=== PATIENT | female | born 1960 | race Caucasian/White ===

== ENCOUNTER 2019-03-04 10:49 | Emergency (ER) | payer BC ==
[~2019-03-04] VITALS: Ht 162.6 cm; Wt 76.7 kg
[2019-03-04] MEDS ORDERED: SERTRALINE HCL100 MG PO (11:20)
[2019-03-04] MEDS ORDERED: LEVOTHYROXINE75 MCG PO (11:20)
[2019-03-04] MEDS ORDERED: LAMOTRIGINE100 MG PO (11:21)
[2019-03-04] MEDS ORDERED: ROPINIROLE HCL1 MG PO (11:21)
[2019-03-04] MEDS ORDERED: MONTELUKAST SOD10 MG PO (11:21)
[2019-03-04] MEDS ORDERED: PRILOSEC OTC20 MG PO (11:22)
[2019-03-04] MEDS ORDERED: QUETIAPINE FUM300 MG PO (11:22)
[2019-03-04] MEDS ORDERED: VENTOLIN HFA18 GM INH (11:23)
[2019-03-04] MEDS ORDERED: NYSTATIN100000 UN1 PO (11:35)
== END 2019-03-04 11:54 | disposition home or self-care (01) ==
LOC: ED 10:49
DX: B37.0 Candidal stomatitis (principal); T37.8X5A Adverse effect of other specified systemic anti-infectives and antiparasitics, initial encounter; F17.200 Nicotine dependence, unspecified, uncomplicated; Z88.5 Allergy status to narcotic agent; Z88.6 Allergy status to analgesic agent
CPT/HCPCS: 99283

== ENCOUNTER 2019-07-31 23:32 | Observation (INO) | payer BC ==
[~2019-07-31] VITALS: Ht 162.6 cm; Wt 80.2 kg
[~2019-07-31 23:32] MED LIST: LAMOTRIGINE100 MG PO; LEVOTHYROXINE75 MCG PO; MONTELUKAST SOD10 MG PO; NYSTATIN100000 UN1 PO; PRILOSEC OTC20 MG PO; QUETIAPINE FUM300 MG PO; ROPINIROLE HCL1 MG PO; SERTRALINE HCL100 MG PO; VENTOLIN HFA18 GM INH
[2019-08-01] MEDS ORDERED: PREDNISONE20 MG PO (02:22)
[2019-08-01] MEDS ORDERED: ALBUTEROL2.5 MG/3 M INH (02:22)
--- NOTE | 2019-08-01 03:25 | NUR ---
PT ARRIVED TO FLOOR VIA STRETCHER. PT ABLE TO STAND AND WALK TO THE BATHROOM WITH SBA. PT TOLERATED WELL. SOB WITH EXERTION. ADMISSION PROCESS COMPLETE. PT PROVIDED WITH SANDWHICH BOX, WATER, AND SODA. PRIMARY RN AT BEDSIDE. PT DENIES FURTHER NEEDS FROM THIS FIREWORKS MAKER. CALL LIGHT IN REACH.
--- NOTE | 2019-08-01 04:00 | NUR ---
PT ORIENTED TO ROOM AND NURSE CALL LIGHT BUTTON. ASSESSMENT COMPLETE. IVF INFUSING. TELE #6, NORMAL SINUS TACH. TEMP UPON ARRIVAL WAS NOTED TO BE 102.6. EXTRA BLANKETS REMOVED. TEMP 100.5 AT THIS TIME. CPOX IN PLACE. OXYGEN 2L/NC IN PLACE. FAN GIVEN PT C/O BEING HOT. PT DENIES FURTHER QUESTIONS. CALL LIGHT IN REACH.
--- NOTE | 2019-08-01 05:30 | NUR ---
IV STARTED IN RIGHT HAND BY SALES REPRESENTATIVE WIRE ROPE PER PT REQUEST DUE TO LEFT HAND IV BEING POSITIONAL AND ALARMING FREQUENTLY. PT LEEANN WELL. TEMP CURRENTLY 99.7. PT WITH FAN AND SHEET ONLY. CPOX AND O2 2L/NC IN PLACE.
--- NOTE | 2019-08-01 07:27 | NUR ---
0708: Report recieved from Aissatou GUZMAN. Pt resting in her bed and she denies any complaints at this time. Sat in the 90's on 2l and tele shows SR at 69. Call chamorro within reach.
--- NOTE | 2019-08-01 07:56 | NUR ---
PT AWAKES TO VOICE AND ANSWERS QUESTIONS AND FALLS RIGHT BACK TO SLEEP. SAT WAS 97% ON 2L WHILE SLEEPING. O2 DECREASED TO 1L AND SHE REMAINS ON CPOX, SAT NOW IS 94%. WILL CONTINUE TO MONITOR. IV CONTINUES RUNNING LR AT 125. CALL JORDAN WITHIN REACH.
--- NOTE | 2019-08-01 09:28 | NUR ---
PATIENT UP TO SHOWER, SBA. PATIENT IND. IN SHOWER. NEW GOWN PROVIDED. LINENS CHANGED. PATIENT NOW BACK TO BED, CALL LIGHT IN REACH. NO FURTHER NEEDS AT THIS TIME.
--- NOTE | 2019-08-01 09:45 | NUR ---
Pt states her breathing feels a little heavy, rt called. Sat 90% on 1l, lung sounds decreased in the bases and exp wheezes throughout. She denies any cp, just sob.
--- NOTE | 2019-08-01 11:03 | NUR ---
sat now 91% on room air. She denies any sob at this time. Pt remains on cpox.
--- NOTE | 2019-08-01 13:29 | NUR ---
Pt resting in her bed coloring in a book. She states she is feeling better and her breathing is improving. Sat on room air is 87-89% and she states she did get dizzy when she walked to the bathroom. 02 replaced at 1l and sat increased to 89-92%. She was instructed to call before getting up which staff was present when she did get up prior. She denies feeling dizzy at this time, hr 88, bp 107/49.
--- NOTE | 2019-08-01 14:05 | NUR ---
MED REC COMPLETED WITH PHARMACY FILL HISTORY AND PATIENT INTERVIEW.
--- NOTE | 2019-08-01 14:33 | NUR ---
Pt denies any new problems and she states she feels that she is improving. Sat on 1l is 90%.
--- NOTE | 2019-08-01 18:04 | EKG ---
[facility] [address] [facility] [place], [place] [address] Signed Normal sinus rhythm Normal ECG No previous ECGs available Confirmed by RYAN HALL DO ([id number]) on 08/01/2019 6:04:06 PM Electronically Signed By: RYAN HALL DO 08/01/19 1804 PATIENT NAME: KRISTEN MIRAMONTES Electrocardiogram DATE OF : 56 PHYSICIAN: RYAN HALL DO REPORT #: [id number] REPORT IS CONFIDENTIAL AND NOT TO BE RELEASED WITHOUT AUTHORIZATION
--- NOTE | 2019-08-01 18:17 | NUR ---
Sat 93% on 1l at this time. Pt states her breathing is feeling "better". She has no complaints at this time.
--- NOTE | 2019-08-01 19:40 | NUR ---
REPORT RECEIVED FROM DAY SHIFT RN. PT SITTING UP IN BED, ALERT AND ORIENTED. O2 1L/NC, SATS 93%. PT DENIES NEEDS AT THIS TIME. CALL LIGHT IN REACH.
--- NOTE | 2019-08-01 20:30 | NUR ---
PT AWAKE AND ALERT, COLORING, WITHOUT COMPLAINTS, VS DONE.
--- NOTE | 2019-08-01 20:55 | NUR ---
ASSESSMENT COMPLETE. SCHEDULED MEDS GIVEN WITHOUT ISSUE. PT TALKATIVE, COLORING IN A BOOK. CPOX IN PLACE. 02 1L/NC, SATS 93%. DENIES PAIN OR SOB. DENIES OTHER NEEDS. CALL LIGHT IN REACH.
--- NOTE | 2019-08-01 21:30 | NUR ---
PT C/O CONSTIPATION. PRN GIVEN.
--- NOTE | 2019-08-01 22:41 | NUR ---
CALL LIGHT ANSWERED. SBA TO THE BATHROOM AND BACK TO BED. NO OTHER NEEDS AT THIS TIME.
--- NOTE | 2019-08-02 00:31 | NUR ---
CALL LIGHT ANSWERED. PT UP TO BR TO WITH SBA. PT SLIGHTLY UNSTEADY, STATES IT'S LIKELY FROM BEING SLEEPY FROM THE SEROQUEL. INCREASED SOB WITH AMBULATION. O2 1L/NC IN PLACE. PT DENIES OTHER NEEDS.
--- NOTE | 2019-08-02 03:15 | NUR ---
PT RESTING IN BED WITH EYES CLOSED. RESPIRATIONS EVEN AND UNLABORED. O2 SATS 96% ON 1L/NC. HR 65. CALL LIGHT IN REACH.
--- NOTE | 2019-08-02 05:00 | NUR ---
PT OXYGEN SATS 96% ON 1L/NC. OXYGEN TITRATED TO OFF. CPOX REMAINS IN PLACE.
--- NOTE | 2019-08-02 05:30 | NUR ---
OXYGEN SATURATIONS REMAIN 92-95% ON RA. HR 72. RR EVEN AND UNLABORED.
--- NOTE | 2019-08-02 06:20 | NUR ---
PT SLEPT WELL. ALERT AND ORIENTED. CALLS APPROPRIATELY. SBA. OXYGEN WEANED TO RA THIS AM, SATS REMAIN 92-95% ON RA. PO ABX. BREATHING TX.
--- NOTE | 2019-08-02 06:39 | NUR ---
SCHEDULED MEDS GIVEN WITHOUT ISSUE. PT UP TO BR WITH SBA. BACK TO BED. CPOX READS 89%, INCREASED SOB NOTED. SATS AT 92% AFTER RESTING IN BED.
--- NOTE | 2019-08-02 07:58 | NUR ---
PT UP IN BED EATING BREAKFAST. SATS DIP TO 88% ON ROOM AIR PT TAKES DEEP BREATHS RECOVERS TO 92% QUICKLY.
--- NOTE | 2019-08-02 08:08 | NUR ---
PATIENT SITTING UP IN BED TAKING HER BREAKFAST. SETS UP BATHROOM FOR SHOWER. PATIENT IS GOING TO TAKE A SHOWER THIS MORNING. CALL LIGHT WITHIN REACH. NO OTHER NEEDS AT THIS TIME
[2019-08-02] MEDS ORDERED: PREDNISONE20 MG PO (09:07)
[2019-08-02] MEDS ORDERED: AZITHROMYCIN250 MG PO (09:11)
[2019-08-02] MEDS ORDERED: ALBUTEROL2.5 MG/3 M INH (09:12)
[2019-08-02] MEDS ORDERED: IPRAT-ALBUT 0.5-3 ML INH (09:12)
--- NOTE | 2019-08-02 09:13 | NUR ---
PATIENT RESTING IN BED. RN AND COUSIN IN ROOM. VITAL SIGNS AND I&O DONE. CALL LIGHT WITHIN REACH. NO OTHER NEEDS AT THIS TIME
--- NOTE | 2019-08-02 09:42 | NUR ---
DR HALL IN TO SEE PT DC INSTRUCTIONS DISCUSSED QUESTIONS ANSWERED. PT TO THE SHOWER SOB SHE RETURNS RECOVERS QUICKLY WITH REST. COUSIN IS IN WITH HER AT THIS TIME
--- NOTE | 2019-08-02 09:45 | NUR ---
SPOKE WITH PATIENT AND COUSIN IN ROOM. PATIENT IS HERE VISITING FAMILY. PATIENT DENIES USING ANY AMBULATION DEVICES. SHE HAS NEBULIZER AT HOME, ALSO OXYGEN SET UP SHE USES NEEDED. SHE STATES SHE SPOKE WITH DR HALL THIS MORNING AND IS BEING DISCHARGED. SHE STATES HE IS GIVING HER SOME DOSES OF HER NEBULIZER MEDICATION AT DISCHARGE TO TAKE HOME TO COUSINS. COUSIN STATES SHE HAS A NEBULIZER AT HER HOUSE. PATIENT IS PLANNING ON RETURNING HOME TOMORROW. SHE STATES UNDERSTANDING THAT SHE SHOULD F/U WITH HER PCP IN [place]. NO FURTHER QUESTIONS OR CONCERNS AT THIS TIME.
== END 2019-08-02 10:26 | disposition home or self-care (01) ==
LOC: ED 23:32 → MS 23:33
PROVIDERS: ADMIT Student in an Organized Health Care Education/Training Program
DX: J44.1 Chronic obstructive pulmonary disease with (acute) exacerbation (principal); D69.6 Thrombocytopenia, unspecified; K21.9 Gastro-esophageal reflux disease without esophagitis; E03.9 Hypothyroidism, unspecified; G25.81 Restless legs syndrome; F17.210 Nicotine dependence, cigarettes, uncomplicated; F39 Unspecified mood [affective] disorder; Z88.5 Allergy status to narcotic agent; Z88.6 Allergy status to analgesic agent; Z88.8 Allergy status to other drugs, medicaments and biological substances; Z79.52 Long term (current) use of systemic steroids; Z79.899 Other long term (current) drug therapy
CPT/HCPCS: 71045; 80053; 83735; 84484; 85025; 90688; 93005; 93010; 94640; 94645; 94762; 96374; 96376; 99285-25; 99406; G0008; G0378; J2930; J7512

== ENCOUNTER 2019-08-03 08:10 | Inpatient (IN) | payer BC ==
[~2019-08-03] VITALS: Ht 162.6 cm; Wt 79.8 kg
[~2019-08-03 08:10] MED LIST changes: +ALBUTEROL2.5 MG/3 M INH; +AZITHROMYCIN250 MG PO; +IPRAT-ALBUT 0.5-3 ML INH; +PREDNISONE20 MG PO
--- OUTSIDE RECORDS SUMMARY | 2019-08-03 08:14 | XMS ---
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 - 2 Visits in 30 Days CARE PROVIDERS [facility] Mental Health Provider 12/02/2006-Current for Living PHONE: [phone] BANDAR LARSEN Primary Care Current PHONE: Unknown Jessa has no Care Guidelines for this patient. Dc VISIT COUNT (12 MO.) [address] [place] [address] TOTAL 3 NOTE: Visits indicate total known visits. ED/UCC VISIT TRACKING (12 MO.) 08/03/2019 08:11 [facility] TYPE: Emergency COMPLAINT: - SOB 07/31/2019 23:32 [facility] TYPE: Emergency COMPLAINT: - SOB 03/04/2019 10:50 [facility] TYPE: Emergency COMPLAINT: - MEDICATION REACTION, TONGUE/LIP SWELLING DIAGNOSES: - Allergy status to analgesic agent status - Nicotine dependence, unspecified, uncomplicated - Adverse effect of systemic anti-infect/parasit, init - Localized swelling, mass and lump, head - Allergy status to narcotic agent status - Candidal stomatitis INPATIENT VISIT TRACKING (12 MO.) 07/31/2019 23:33 PR[facility]LL[facility]quez OR TYPE: Observation COMPLAINT: - COPD EXACERBATION [email or web address]
--- NOTE | 2019-08-03 12:20 | NUR ---
58 YR OLD FEMALE PATIENT ADMITTED TO CCU FROM ED VIA STRETCHER UNDER DR. HALL WITH DX OF EXCERBATION COPD. PATIENT WAS DISCHARGED FROM THIS HOSPITAL 2 DAYS AGO. USES HOME O2 BUT HAS BEEN VISITING FROM [facility] TO BRING O2. UPON ADMIT PATINT IS ON BIPAP, FIO2 40, I-15, E-8.. IS ABLE TO ANSWER QUESTIONS. STATES SHE IS FEELING BETTER. HAS OCC NON PRODUCTIVE COUGH. ADMISSION PROCESS STARTED
--- NOTE | 2019-08-03 13:30 | NUR ---
AWAKE, UP TO COMMODE WITH ASSIST TO VOID QS AMOUNT OF TERESSA URINE. BIPAP REMAISN ON WITH TRANSFER TO COMMMODE. UPON RETURN TO BED IS WITH INCREASE SHORTNESS OF BREATH. HOB ELEVATED. RESP RATE-30.
--- NOTE | 2019-08-03 14:21 | NUR ---
MED REC COMPLETE
--- NOTE | 2019-08-03 14:22 | EKG ---
[facility] [address] [facility] [place], [place] [address] Signed Sinus tachycardia Otherwise normal ECG No previous ECGs available Confirmed by RYAN HALL DO ([id number]) on 08/03/2019 2:22:07 PM Electronically Signed By: RYAN HALL DO 08/03/19 1422 PATIENT NAME: KRISTEN MIRAMONTES Electrocardiogram DATE OF : 56 PHYSICIAN: RYAN HALL DO REPORT #: [id number] REPORT IS CONFIDENTIAL AND NOT TO BE RELEASED WITHOUT AUTHORIZATION
--- NOTE | 2019-08-03 14:59 | NUR ---
IN ROOM TO CHECK ON PT. PT SLEEPING WITH BIPAP IN PLACE. NO DISTRESS NOTED. BP RECYCLED, BUT REMAINS LOW. WILL CONTINUE TO MONITOR.
--- NOTE | 2019-08-03 15:00 | NUR ---
IVF LR BOLUS OF 1 LITER PER ORDERS INFUSING.
--- NOTE | 2019-08-03 16:00 | NUR ---
MODIFIED ASSESSMENT DONE PATIENT IS SLEEPING.
--- NOTE | 2019-08-03 16:56 | NUR ---
sleeping on bipap. NO DISTRESS NOTED.
--- NOTE | 2019-08-03 17:09 | NUR ---
In for case management assessment. Pt is sleeping with bipap in place. Not awakened.
--- NOTE | 2019-08-03 17:40 | NUR ---
TO CT VIA BED, RESP THERAPY HERE TO MANAGE BIPAP. RT, BUS AIDE, RN WITH PATIENT.
--- NOTE | 2019-08-03 17:55 | NUR ---
RETURN TO CCU, TOLERATED CT WELL. PATIENT IS ASKING FOR FOOD. TALKED WITH PATIENT ABOUT THIS. IS UNDERSTANDING. HOB ELEVATED.
--- NOTE | 2019-08-03 20:00 | NUR ---
PT AT THIS TIME IS SLEEPING. V/S ARE WDL.
--- NOTE | 2019-08-03 21:00 | NUR ---
PT AT THIS TIME IS CALM AND AAOX4. PT IS EATING A SNACK. PT HAS LESS SOB PRESENT AT THIS TIME AND WAS ABLE TO MOVE TO BSC AND VOID WITHOUT BECOMING SHORT OF BREATH TO THE POINT OF PANIC. ALL LOBES ARE COARSE AT THIS TIME. ABD SOUNDS ARE PRESENT, PT HAS +1 BILATERAL LOWER LEG EDEMA PRESENT, RADIAL AND PEDIS PULSES +2. V/S OVERALL WDL. PT IS TOLERATING OXY MASK ON 5L WHILE EATING WELL. WILL CONTINUE TO MONITOR.
--- NOTE | 2019-08-03 22:00 | NUR ---
PT IS SLEEPING WITH BI-PAP ON. NO NEW CONCERNS NOTED AT THIS TIME.
--- NOTE | 2019-08-04 00:05 | NUR ---
PT STILL ON BI-PAP FIO2 35%. PT IS TOLERATING WELL. PT ALSO TOLERATES OXY MASK 5L O2 WELL WHILE ON BSC. PT DENIES PAIN AND ONLY HAS MINOR SOB. ALL LOBES HAVE EXP. WHEEZING PRESENT. NO NEW CONCERNS WERE NOTED.
--- NOTE | 2019-08-04 02:00 | NUR ---
PT IS SLEEPING WITH BI-PAP ON AT THIS TIME. NO NEW CONCERNS NOTED.
--- NOTE | 2019-08-04 04:00 | NUR ---
PT IS STILL SLEEPING. NO NEW COCNERNS NOTED.
--- NOTE | 2019-08-04 04:50 | NUR ---
ALL LOBES HAVE EXPIRT. WHEEZING PRESENT AND ARE DIMINISHED IN THE BASES. OTHERWISE ASSESSMENT WAS UNCHANGED.
--- NOTE | 2019-08-04 06:00 | NUR ---
PT IS SLEEPING AT THIS TIME. NO NEW CONCERNS NOTED. V/S WDL.
--- NOTE | 2019-08-04 09:45 | NUR ---
PT FREIND INTO SEE PT AT THIS TIME, PT IS ON NC AT 5L'S THIS TIME AND DOING WELL. SPO2 96% AT THIS TIME.
--- NOTE | 2019-08-04 10:31 | NUR ---
PT BACK TO BED FROM BS COMMODE VOIDED AND GIVEN BATH. PT LEEANN-WELL AT THIS TIME. ONCE IN BED PT PLACED BACK TO BIPAP. SIDE RAILS X 4 AND CALL LIGHT WITHIN REACH.
--- NOTE | 2019-08-04 10:56 | NUR ---
PT SOB WHILE ON BIPAP AT THIS TIME, CHANGED BACK TO NC AT THIS TIME, AND 94% ON 5L'S. RT NOTIFIED AT THIS TIME.
--- NOTE | 2019-08-04 10:58 | NUR ---
PT EDUCATION PACKET GIVEN TO PT, EXPLAINED THE TOPICS THAT WHERE GIVEN.
--- NOTE | 2019-08-04 13:20 | NUR ---
PT UP TO BS COMMODE VOIDED AND BACK TO BED AT THIS TIME. WAS SOB WHEN GETTING BACK TO BED, ENCOURAGED HER TO TAKE SLOW BREATHS DUE TO SHE NEEDS TO WAIT ABOUT 30 MINUTES TILL SHE CAN GO BACK ON BIPAP TO TO THE SIZE AND TYPE OF LUNCH THAT SHE JUST ATE. PT UNDERSTOOD. PT IS DOING WELL WITH HER O2 VIA NC AT 5L'S AT THIS TIME WITH A SPO2 94%.
--- NOTE | 2019-08-04 14:34 | NUR ---
INF A/B SAMPLE SENT TO LAB AT THIS TIME.
--- NOTE | 2019-08-04 15:35 | NUR ---
Spoke briefly with Radha as she has bipap on and it is difficult for her to speak. She returned to the hospital following discharge with exacerbation of COPD. She lives in [place] with her spouse. She is here visiting with family. She denies use of 02 at home. Has a nebulizer and denies need for further DME.
--- NOTE | 2019-08-04 15:40 | NUR ---
RESUMING CARE OF PATIENT AT THIS TIME. PT HAS BEEN RESTING ON BIPAP AND TOLERATING WELL. PT TAKEN OFF BIPAP AND PLACED ON NASAL CANNULA AT 5 L. ASSESSMENT COMPLETE. DINNER ORDERED FOR PATIENT. PT REMAINS WHEEZY THOUGHOUT LUNG HILL AND HAS A PRODUCTIVE LOOSE SOUNDING COUGH.
--- NOTE | 2019-08-04 16:48 | NUR ---
PATIENT OFF BIPAP AT THIS TIME PER HER REQUEST. PT ON 5 L NC. DENIES FURTHER NEEDS. CONTINUES TO HAVE HARSH SOUNDING COUGH.
--- NOTE | 2019-08-04 17:44 | NUR ---
PATIENT UP TO [facility] TO VOID AND HAVE A BM. PT TOLERATED EATING ALL OF HER DINNER WELL WITHOUT DIFFICULTY.
--- NOTE | 2019-08-04 18:38 | NUR ---
4 UNSUCCESSFUL IV ATTEMPTS ON PATIENT. PT'S IV IN LEFT AC STILL FLUSHING, BUT DOES LEAK A LITTLE AROUND HUB. GIVING PATIENT A BREAK FROM BEING POKED AT THIS TIME.
--- NOTE | 2019-08-04 19:30 | NUR ---
PATIENT UP TO BSC WITH VOID. INDEPENDENT TRANSFER. TOLERATED WELL. 5L NC IN PLACE. O2 SAT >90%. SLIGHT INCREASE IN WORK OF BREATHING AFTER RETURNING TO BED. LUNG SOUNDS ARE TIGHT THORUGHOUT WITH SOME EXPIRTORY WHEEZES IN RADHA UPPER LOBES. RT IN FOR NEB TREATMENT AND BIPAP IN PLACE.
--- NOTE | 2019-08-04 20:15 | NUR ---
PATIENT ABLE TO TOLERATE BIPAP AT THIS TIME. APPEARS UNCOMFORTABLE AND ADJUST MASK FREQUENTLY. RT ATTEMPTS TO REPSOITION ARE MILDLY HELPFUL. DRY COUGH NOTED. PATIENT ALERT AND ORIENTED. DENIES PAIN. GOOD ORAL INTAKE. DENIES ANY GI CONCERNS. VS STABLE. IV FLUIDS IN STAND-BY, DUE TO LEAKING IV SITE. AREA REDRESSED AND HUB TIGHTENED. LEAKING DECREASED, BUT SITE IS TENDER WHEN FLUSHED. FAILED IV ATTEMPT BY THIS RN. SECOND RN ATTEMPT IN PROGRESS.
--- NOTE | 2019-08-04 21:46 | NUR ---
SECOND IV SITE ESTABLISHED BY CALE GUZMAN. IV MEDS PROVIDED PER ORDER. PATIENT TOLERATED POORLY REPORTING SEVERE PAIN WITH EACH ATTEMPT. SNACK PROVIDED PER REQUEST. PATIENT NOW FEELS READY FOR BED. UP TO BSC TO VOID. THEN INTO BED WITH BIPAP IN PLACE. CALL LIGHT IN REACH.
--- NOTE | 2019-08-05 00:11 | NUR ---
PATIENT RECEIVED SNACK BOX PER REQUEST AND TOLERATED 3L NC WHILE EATING. PATIENT UP TO THE BSC TO VOID. TOLERATES ACTIVITY MODERATELY WELL, HOWEVER LUNG SOUNDS ARE VERY TIGHT WITH AUDIBLE WHEEZES. RT IN FOR NAB TREATMENT AND PATIENT BACK ON BIPAP AT 35% Fi02.
--- NOTE | 2019-08-05 02:30 | NUR ---
PATIENT HAS BEEN SLEEPING SOUNDLY WITH BIPAP IN PLACE. VS STABLE. RR 20-24 WITH O2 SAT >95% ON 35% Fi02.
--- NOTE | 2019-08-05 04:00 | NUR ---
PATIENT CONTINUES TO SLEEP SOUNDLY. RT IN FOR IN-LINE NEB TREATMENT. PATIENT DOES NOT WAKE. APPEARS MORE RESTFUL AFTER NEB. RR 22. O2 SAT 97% ON BIPAP AT 35% Fi02.
--- NOTE | 2019-08-05 05:00 | NUR ---
LAB IN FOR MORNING DRAW. PATIENT REFUSED. DISCUSSED PATIENT'S RIGHTS TO REFUSE LAB DRAW AND ADVISED HER OF LABS ORDERED FOR THIS MORNING AND THE PURPOSE RELATED TO HER CONDITION. PATIENT AGREEABLE TO LAB DRAW AND STATES "THEY ONLY GET ONE TRY". LAB STAFF WILL RETURN FOR LAB DRAW. PATIENT UP TO BSC TO VOID. LINEN DAMP FROM PATIENT SWEATING WHILE SLEEPING. FRESH GOWN AND LINEN APPLIED. PATIENT DENIES FEELING ANY IMPROVEMENT THIS MORNING. BECOME SOB WITH ACTIVITY AND FEELS UNABLE TO CATCH HER BREATH WITH NC. OXYMASK WITH 3L O2 PLACE, O2 SATS >90% THROUGHOUT TRANSFER. PATIENT BACK IN BED RESTING. LUNG SOUNDS ARE TIGHT THROUGHOUT WITH RHONCI AND WHEEZING. PATIENT TAKING BREAK FROM BIPAP PER REQUEST. CALL LIGHT IN REACH.
--- NOTE | 2019-08-05 06:23 | NUR ---
LABS DRAWN. MORNING MEDS PROVIDED. PATIENT HAS BEEN ON OXYMASK AT 3L O2 FOR ABOUT AN HOUR. STATES THAT SHE FEELS HER WORK OF BREATHING INCREASING AND REQUEST BIPAP, WHICH WAS PLACE AFTER PATIENT RETURNED TO BED FROM USING BSC. PATIENT DID APPEARS TO BE HAVING TROUBLE CATCHING HER BREATH FOR 4-5 MINS. STATED SHE FELT LIKE AN "ASTHMA ATTACK WAS ABOUT TO COME ON". LUNG SOUNDS ARE VERY TIGHT. PATIENT DENIES NEED FOR PRN NEB, STATES "LETS GIVE IT A FEW MINUTES". PATIENT ABLE TO LAY DOWN IN BED AND DOES NOT APPEAR TO BE IN DISTRESS. O2 SAT 96% WITH 35% Fi02. RR 22.
--- NOTE | 2019-08-05 07:30 | NUR ---
PATIENT RESTING IN BED WITH BIPAP IN PLACE. PATIENT CALLS APPROPRIATELY. PATIENT DENIES ANY NEEDS AT THIS TIME. CALL LIGHT IN PLACE. WILL CONTINUE TO CLOSELY MONITOR.
--- NOTE | 2019-08-05 08:00 | NUR ---
Pt was sitting up in her bed, she requested her BIP taken off bc discomfort. BIP was replaced w/nasal cannula 4L. Pt requested breakfast. Morning assessment was completed. Pt lungs sounds audible expitory wheezes bilaterally, Sp02 95%,Pt reported she is feeling better than she was yesterday, she was laughing and making jokes w/nursing staff. Pt is in bed guardrails up, call light within reach. Will continue to monitor.
--- NOTE | 2019-08-05 09:30 | NUR ---
Pt requested assistance to use the commode. Pt experienced SOB w/exertion getting on and off of the commode. Sp02 dropped to 88% w/exertion then increased to 94% when at rest in bed. Family is visiting at bedside. Pt is in bed, guardrails up, call light within reach, will continue to monitor.
--- NOTE | 2019-08-05 11:00 | NUR ---
PATIENT RESTING IN BED AT THIS TIME. PATIENT DENEIS ANY NEEDS. PATIENT IS MORE WHEEZY AT TIMES, BUT IS TOLERATING THE NASAL CANNULA AT THIS TIME. WILL CONTINUE TO CLOSELY MONITOR.
--- NOTE | 2019-08-05 12:45 | NUR ---
PT HAD JUST FINISHED BREATHING TREATMENT AND WAS STARTING ON LUNCH. PT HAD FAMILY IN, AND SHE MENTIONED THAT SHE DOES NOT USE O2 AT HOME. PT THANKED ME FOR VISITING, AND WILL CHECK BACK AGAIN
--- NOTE | 2019-08-05 12:52 | NUR ---
After eating lunch the Pt appeared to be SOB and fatigue, she requested to use her oxymask instead of her nasal cannula. Pt needed assistance to use the commode she was SOB w/exertion getting on and off the commode. Pt continued to be SOB at rest in bed. The oxymask was changed to her bipap. Pt is resting watching tv, the guardrails are up, call light is within reach. Will continue to monitor.
--- NOTE | 2019-08-05 14:30 | NUR ---
Pt sleeping with bipap in place. Spoke with Rn. Pt cont. tired and needing bipap. Updated I received a call from Patrica HERCULES at [facility]. She will assist pt to prevent returns to hospital. States she can assist with any barriers or social issues. [phone].
--- NOTE | 2019-08-05 16:30 | NUR ---
PATIENT RESTING IN BED. THIS RN IN TO SEE PATIENT. PATIENT BREATH SOUNDS REMAINS UNCHANGED FROM PRIOR ASSESSMENT, EXERTIONAL WHEEZE NOTED. ASSISTED PATIENT UP TO THE BEDSDIE CAMMODE AND THEN TO THE CHAIR. PATIENT TOELRATED WELL. PATIENT AWAITING DINNER. WILL CONTINUE TO CLOSELY MONITOR.
--- NOTE | 2019-08-05 17:30 | NUR ---
Pt resting comfortably up right in the chair. Pt bedding was changed. 100% dinner eaten well tolerated. Pt had assistance using the commode, SOB w/exertion. Pt requested to get back in bed. Pt is laying comfortably in bed watching tv, guardrails up, call light within reach. Pt is tolerating nasal cannula 2L. Will continue to monitor.
--- NOTE | 2019-08-05 19:15 | NUR ---
SHIFT REPORT RECIEVED FROM SHANIKA RN. PT RESTING IN BED, COLORING IN BOOK. SPO2 94% ON 4L NC. IV FLUIDS INFUSING AT 40ML/HR. TELE SR @ 81. PT DECLIONES SCDs AT THIS TIME. SODA PROVIDED. NO OTHER NEEDS, CALL LIGHT IN REACH.
--- NOTE | 2019-08-05 20:38 | NUR ---
PT RESTING IN BED, WATCHING TV AND COLORING. PT UP TO BSC AND BACK TO BED, SBA. ASSESSMENT, I & O AND VS COMPLETED. IV FLUSHED WELL, CDI, WNL. LUNGS HAVE INSPIRATORY AND EXPIRATORY WHEEZING IN ALL LOBES. SPO2 93% ON 4L NC. TELE SR @ 77. CMS X4, CAPILLARY REFILL < 3 SECONDS. SKIN WARM, DRY AND APPROPRIATE COLOR. IV FLUIDS DCd PER VERBAL ORDER BY MD. NO OTHER NEEDS. CALL LIGHT IN REACH.
--- NOTE | 2019-08-05 21:32 | NUR ---
PT RESTING IN BED, WATCHING TV. RR 22, EVEN, UNLABORED. SPO2 94% ON 4L NC, HAD YUMI RN REMOVE BIPAP SHE WAS FEELING CLAUSTROPHOBIC AND PLACED BACK ON NC. NO OTHER NEEDS AT THIS TIME. CALL LIGHT IN REACH.
--- NOTE | 2019-08-05 21:54 | NUR ---
SCHEDULED MEDS PROVIDED. SPO2 93% ON 4L NC. RR 22, EVEN, UNLABORED. NO OTHER NEEDS, CALL LIGHT IN REACH.
--- NOTE | 2019-08-05 22:56 | NUR ---
PT CALLS TO USE BSC. UP TO BSC AND BACK TO BED, SBA. MILD INCREASED RESP EFFORT WITH MOVEMENT. SPO2 91% ON 4L NC. SANDWICH BOX PROVIDED PER PT REQUEST. NO OTHER NEEDS AT THIS TIME. CALL LIGHT IN REACH.
--- NOTE | 2019-08-06 00:05 | NUR ---
PT RESTING IN BED, EYES CLOSED. PT WAKES WHEN RN ENTERS ROOM. ASSESSMENT, VS AND I&O COMPLETED. SPO2 94% ON 4L NC. PT DECLINES BIPAP AT THIS TIME. SCDs ON. NO OTHER NEEDS AT THIS TIME. CALL LIGHT IN REACH.
--- NOTE | 2019-08-06 01:30 | NUR ---
PT MONITOR ALARMING FOR SPO2 IN UPPER 80s. PT ENCOURAGED TO USE BIPAP. BIPAP ON AND PT REPOSITIONED. SPO2 @ 94%. TELE SR @ 63. NO OTHER NEEDS, CALL IN REACH.
--- NOTE | 2019-08-06 02:50 | NUR ---
PT BIPAP ALARMING. PT ASSISTED TO ADJUST MASK. SPO2 97%. SR @ 61. NO OTHER NEEDS, CALL LIGHT IN REACH.
--- NOTE | 2019-08-06 04:28 | NUR ---
PT AWAKE IN ROOM. PT UP TO BSC AND BACK TO BED, SBA. ASSESSMENT, VS AND I&O COMPLETED. LUNG SOUNDS EXPIRATORY WHEEZES BILATERAL UPPER LOBES AND DIMINISHED IN LOWER LOBES. IV CDI, WNL, FLUSHED WELL. PT REQUESTS BREAK FROM SCDs. PT DECLINES TO PUT BIPAP BACK ON, SPO2 94% ON 4L NC. CAPILLARY REFILL <3 SECONDS, SKIN WARM, DRY AND APPROPRIATE COLOR. TELE SR @65. NO OTHER NEEDS. CALL LIGHT IN REACH.
--- NOTE | 2019-08-06 06:10 | NUR ---
SCHEDULED MEDS PROVIDED. IV CDI, WNL, FLUSHED WELL. SPO2 95% IN 4L NC. PT STATES SHE IS GOING BACK TO SLEEP NOW. NO OTHER NEEDS, CALL LIGHT IN REACH.
--- NOTE | 2019-08-06 06:13 | NUR ---
PT HAS SLEPT WELL THIS SHIFT. PT HAS DECLINED TO WEAR THE BIPAP ABOUT HALF THE NIGHT. PT DECLINED TO WEAR SCDs MOST THE NIGHT. PT HAD INCREASED WORK OF BREATHING AND SPO2 DECREASING TO HIGH 80s WITH EXERTION WHILE ON 4L NC. PT RECOVERED QUICKLY AFTER EVENT. IV CDI, WNL, FLUSHED WELL, SL. UPPER LUNG SOUNDS OF EXPIRATORY WHEEZING AND DIMINISHED IN LOWER LOBES. NO EDEMA NOTED. TELE SR IN 60s-70s.
--- NOTE | 2019-08-06 07:30 | NUR ---
PATIENT SHIFT REPORT RECIEVED FROM FEATHER DUSTER WINDER RN. PATIENT RESTING IN BED AT THIS TIME ON 2L NC. PATIENT SPO2 94%. CALL LIGHT IN REACH. WILL CONTINUE TO CLOSELY MONITOR.
--- NOTE | 2019-08-06 08:45 | NUR ---
PATIENT ASSESSMENT COMPELTED. PATIENT UP TO THE CAMMODE AND NOW SITTING IN THE CHAIR AWAITING BREAKFAST. MD CUMMINGS ALREADY IN AND SAW PATIENT. PATIENT WILL TRANSFER TO THE MEDICAL FLOOR TODAY. PATIENT IS AGREEABLE TO PLAN OF CARE. PATIENT BREATH SOUNDS ARE DIMINISHED WITH AUDIBLE EXP WHEEZE NOTED. PATIENT STATES "I AM FEELING BETTER AND BETTER". WILL CONTINUE TO WEAN OXYGEN PATIENT CAN TOLERATE AND CLOSELY MONITOR. NO OTHER NEEDS AT THIS TIME. WILL CONTINUE TO CLSOELY MONITOR.
--- NOTE | 2019-08-06 09:55 | NUR ---
PT TO ROOM 122 IN BED FROM CCU IN CARE OF THOMAS PLUNKETT. REPROT WAS RECEIVED FROM THOMAS HINTON. PT IS ALERT AND ORIENTED, REPORTS SLIGHT SOB. ON 2LPNC. VSS. CALL LIGHT AND H2O IN REACH. RESPIRATIONS EVEN AND UNLABORED AT 18. RT IN TO SEE PATIENT. NO NEEDS OR CONCERNS VOICED.
--- NOTE | 2019-08-06 10:00 | NUR ---
PATIENT REPORT GIVEN TO WICHO GUZMAN AND TRANSFERED TO ROOM 122. TRANSFERED PATIENT IN THE BED AND PATIENT TOLERATED WELL. ALL BELONGINGS SENT WITH PATIENT. RESPIRATORY THERAPIST TRANSFERED ALL RESPIRATORY EQUIPMENT TO ROOM 122 AND ALSO TITRATED PATIENT TO 1L NC AND PATIENT IS TOELRATING THAT WELL AT THIS TIME WITH SPO2 94%. UPDATES GIVEN TO WICHO. CALL LIGHT IN REACH. NO OTHER NEEDS AT THIS TIME.
--- NOTE | 2019-08-06 12:55 | NUR ---
SCHEDULED IV ABX HUNG AND INFUSING -SEE EMAR. CALL LIGHT AND H2O IN REACH. NO NEEDS OR CONCERNS VOICED.
--- NOTE | 2019-08-06 14:15 | NUR ---
PT RESTING IN SEMIFOWLERS POSITION IN BED ALERT AND ORIENTED AND TEXTING ON CELL PHONE. ASSESSMENT COMPLETED AND SCHEDULED I MED ADMINISTERED -SEE EMAR. CALL LIGHT AND H2O IN REACH. PT DENIES FURTHER NEEDS OR CONCERNS.
--- NOTE | 2019-08-06 17:10 | NUR ---
PT SITTING UP EATING DINNER. CALL LIGHT AND H2O IN REACH. NO NEEDS OR CONCERNS VOICED.
--- NOTE | 2019-08-06 19:05 | NUR ---
SHIFT REPORT RECEIVED FROM DAYSWYFT THOMAS SANDS AT BEDSIDE. PT AWAKE AND RESTING IN BED, 2LNC IN PLACE. PT DENIES NEEDS, CALL LIGHT IN REACH. BOARD UPDATED.
--- NOTE | 2019-08-06 22:20 | NUR ---
ASSESSMENT COMPLETE, SCHEDULED MEDS GIVEN (SEE EMAR). PT DENIES PAIN OR NAUSEA. IV SITE WNL, FLUSHES EASILY. A/OX4, NO ADDITIONAL NEEDS VERBALIZED. CALL LIGHT IN REACH.
--- NOTE | 2019-08-06 23:05 | NUR ---
PT RESTING IN BED WITH EYES CLOSED, RESPIRATIONS EVEN AND UNLABORED. 2LNC IN PLACE, RT CALLED FOR BIPAP PLACEMENT. NO FURTHER NEEDS, CALL LIGHT IN REACH.
--- NOTE | 2019-08-07 02:09 | NUR ---
PT RESTING IN BED WITH EYES CLOSED. RR EVEN AND UNLABORED, NO DISTRESS NOTED. BIPAP IN PLACE, PT APPEARS COMFORTABLE AT THIS TIME. CALL LIGHT IN REACH, SCD'S ON.
--- NOTE | 2019-08-07 03:42 | NUR ---
ASSESSMENT COMPLETE, PT RESTING IN BED WITH EYES CLOSED. LUNG SOUNDS REMAIN COURSE THROUGHOUT, NO SIGNS OF RESPIRATORY DISTRESS NOTED. PT ON BIPAP, O2 SAT AND HR WNL. SCD'S ON. CALL LIGHT IN REACH.
--- NOTE | 2019-08-07 06:24 | NUR ---
SCHEDULED MEDS GIVEN (SEE EMAR). VSS, PT ON 2LNC AND RESTING IN BED. NO FURTHER NEEDS, SCD'S ON. CALL LIGHT IN REACH.
--- NOTE | 2019-08-07 07:05 | NUR ---
PT RESTING SUPINE IN BED EYES CLOSED AND RESPIRATIONS EVEN AND UNLABORED. PT APPEARS TO BE SLEEPING COMFORTABLY. PER BEDSIDE REPORT RECEIVED FROM THOMAS DOMINGUEZ.
--- NOTE | 2019-08-07 07:15 | NUR ---
PT RESTING SUPINE IN BED EYES CLOSED AND RESPIRATIONS EVEN AND UNLABORED. PT APPEARS TO BE SLEEPING COMFORTABLY. PE SCOTTYIDE REPORT PT REMAINS FEBRILE. ICE PACKS APPLIED TO BILAT AXILLAS FOR COMFORT. CALL LIGHT AND H2O IN REACH. PT ALSO PROVIDED WITH ICE WATER AND ICED TEA PER REQUEST. NO FURTHER NEEDS OR CONCERNS VOICED.
--- NOTE | 2019-08-07 08:20 | NUR ---
PT RESTING IN BED ALERT AND ORIENTED CALL LIGHT AND H2O IN REACH. NO NEEDS OR CONCERNS VOICED. TEMP NOW 98.5. AM MEDS ADMINISTERED AND ASSESSMENT COMPLETED.
--- NOTE | 2019-08-07 09:45 | NUR ---
DR GASPAR WAS IN TO DISCUSS NEED FOR OUTPATIENT APPOINTMENT TO COMPLETE A PARTIAL TOE AMPUTATION TO RIGHT SECOND TOE. PT APPEARED TO TAKE THIS NEWS WELL STATING "I DON'T MIND IF YOU JUST TAKE THE WHOLE TOE OFF". CALL LIGHT AND H2O IN REACH.
--- NOTE | 2019-08-07 10:34 | NUR ---
PT SITTING UP IN BED COLORING AT THIS TIME. O2 SAT 93% ON 0.5LPNC. CALL LIGHT AND H2O IN REACH. PT DENIES PAIN, SOB OR OTHER SYMPTOMS. NO NEEDS OR CONCERNS VOICED.
--- NOTE | 2019-08-07 13:00 | NUR ---
PT SITTING UP IN BED ALERT AND ORIENTED AND COLORING IN ADULT COLORING BOOK. SCHEDULED MEDS WERE GIVEN AND PT ASSISTED TO RESTROOM WITH SBA AND BACK TO BED AFTER LINENS WERE CHANGED. CALL LIGHT AND H2O IN REACH. PT SATTING AT 93% ON 0.5LPNC AND DENIES SOB, PAIN OR NAUSEA.
--- NOTE | 2019-08-07 15:58 | NUR ---
PT SITTING UP IN BED ALERT AND ORIENTED FINISHED BREATHING TREATMENT. NO NEEDS OR CONCERNS VOICED. PT REMAINS ON 0.5LPNC AND APPEARS TO BE IN NO ACUTE DISTRESS.
--- NOTE | 2019-08-07 18:30 | NUR ---
PT USES [facility] . HAS CONCENTRATOR IN HOME AND HAS A PORTABLE TANK AT HOME. MAY NEED TO USE OUR PORTABLE TANK TO GO HOME TOMORROW IF STILL ON O2. CURRENTLY ON .5L/NC. DAUGHTER WILL RETURN TANK TO HOSPITAL ON FRIDAY. SPOKE WITH CONNOR GUZMAN SOAP BOILER AND SHE CALLED [facility] AND AGREEMENT REACHED PT CAN TAKE OUR PORTABLE IF NEEDED AT [place].
--- NOTE | 2019-08-07 19:15 | NUR ---
SHIFT REPORT RECEIVED FROM DAYSPAFT THOMAS SANDS AT BEDSIDE. PT AWAKE AND RESTING IN BED ON RA, O2 SAT ABOVE 90%, HR WNL. PT DENIES NEEDS, CALL LIGHT IN REACH.
--- NOTE | 2019-08-07 22:00 | NUR ---
ASSESSMENT COMPLETE, SCHEDULED MED SGIVEN (SEE EMAR). PT DENIES PAIN, VSS. PT ON RA, CPOX IN PLACE. O2 SAT AT TIMES UPPER 80'S THEN RETURNS QUICKLY TO LOW TO MID 90'S. IS AND ACCAPELLA USE DEMONSTRATED. LUNG SOUNDS IMPROVING, WHEEZES SCATTERED IN UPPER LOBES. PT DENIES SOB OR CHEST PAIN. IV SITE WNL, FLUSHES EASILY. NO FURTHER NEEDS, PT REPORTS EXCITEMENT TO GO HOME TOMORROW, INTERAVTIVE WITH STAFF AND VERY COMPLAINT WITH CARE. NO FURTHER NEEDS, CALL LIGHT IN REACH.
--- NOTE | 2019-08-07 22:58 | NUR ---
CPOX ALARMING, PT SUSTAINING AT 85-87% ON RA WHILE SLEEPING. PT PLACED ON 2LNC, O2 NOW ABOVE 90% AND SUSTAINING. RT AWARE. CALL LIGHT IN REACH.
--- NOTE | 2019-08-07 23:24 | NUR ---
THIS RN IN ROOM TO ANSWER CALL LIGHT, PT REPORTS FEELING CONFINED/CONSTRICETED. ASSISTED PT WITH REMOVAL OF TOP AND SCD'S. PT STATES, "THAT FEELS BETTER, THANK YOU". NO FURTHER NEEDS.CALL LIGHT IN REACH.
--- NOTE | 2019-08-07 23:56 | NUR ---
PT RESTING IN BED WITH EYES CLOSED. 2LNC IN PLACE, 02 SAT 94%, HR 60'S. NO DISTRESS NOTED, CALL LIGHT IN REACH.
--- NOTE | 2019-08-08 00:55 | NUR ---
CPOX ALARMING, O2 SAT 81% ON 2LNC. PT AWAOKE AND INSTRUCTED TO DEEP BREATH, O2 SAT QUICKLY WENT TO MID 90'S AND NOW SUSTAINING. NO DISTRESS NOTED, CALL LIGHT IN REACH.
--- NOTE | 2019-08-08 02:34 | NUR ---
PT RESTING IN BED, O2 SAT 100% ON 2LNC. TITRATED TO RA, O2 SAT SUSTAINING LOW TO MID 90'S. NO DISTRESS NOTED, WILL MONITOR. CALL LIGHT IN REACH.
--- NOTE | 2019-08-08 03:03 | NUR ---
CPOX ALARMING, SATS 85-88%. PT PLACED ON 2LNC, O2 SAT NOW 90%. NO DISTRESS NOTED. CALL LIGHT IN REACH.
--- NOTE | 2019-08-08 07:02 | NUR ---
Pt resting supine in bed eyes closed and respirations even and unlabored on 2lpnc. Pt appears to be sleeping comfortably. Call light and h2o in reach. Report received from THOMAS Carrizales
--- NOTE | 2019-08-08 09:20 | NUR ---
PT SITTING UP IN BED TEXTING ON CELL PHONE AND COLORING IN ADULT COLORING BOOK. PT DENIES SOB ON ROOM AIR AT THIS TIME BUT STATES "I STILL DO GET A LITTLE SOB WHEN I GET UP TO THE BATHROOM BUT THEN IT GETS BETTER WHEN I GET BACK TO BED." ASSESSMENT COMPLETED. AM MEDS ADMINISTERED. PT VOICED READINESS TO DISCHARGE. NO FURTHER NEEDS OR CONCERNS VOICED.
[2019-08-08] MEDS ORDERED: CEFDINIR300 MG PO (09:31)
[2019-08-08] MEDS ORDERED: PREDNISONE20 MG PO (09:33)
== END 2019-08-08 10:20 | disposition home or self-care (01) | DRG 189 ==
LOC: ED 08:10 → CCU 11:45 → MS 08-06 09:49
PROVIDERS: ADMIT Student in an Organized Health Care Education/Training Program
DX: J96.01 Acute respiratory failure with hypoxia (principal); J44.1 Chronic obstructive pulmonary disease with (acute) exacerbation; D69.6 Thrombocytopenia, unspecified; F17.200 Nicotine dependence, unspecified, uncomplicated; K21.9 Gastro-esophageal reflux disease without esophagitis; E03.9 Hypothyroidism, unspecified; G25.81 Restless legs syndrome; F39 Unspecified mood [affective] disorder; Z99.81 Dependence on supplemental oxygen; Z88.5 Allergy status to narcotic agent; Z88.6 Allergy status to analgesic agent; Z79.899 Other long term (current) drug therapy; Z79.52 Long term (current) use of systemic steroids
CPT/HCPCS: 36415; 36600; 71045; 71260; 80048; 80053; 82803; 83735; 83880; 84484; 85025; 85379; 87070; 87205; 87502; 93005; 93010; 94640; 94660; 94667; 94668; 94760; 96374; 96375; 99285-25; 99406; J0456; J0696; J1100; J2060; J2920; J2930; J7060; J7121; J7512; Q9967